=== PATIENT | female | born 1930 | race Caucasian/White ===

== ENCOUNTER 2016-12-06 12:38 | Inpatient (IN) | payer MEDICARE, BC ==
--- NOTE | ~2016-12-06 | CN ---
Consultation Report [address] [id number] [facility] [place]. [address] NAME: JADEN BARBER : [birth year] STATUS : ADM IN [facility]#: [id number] AGE: 86 ADM/REG DATE : 12/06/16 MR#: [id number] REPORT SERV DATE: 12/08/16 DICTATED BY: MAVERICK STERN DATE: 12/08/16 REPORT STATUS : Draft TRANSCRIBED BY: MODL DATE: 12/08/16 SURGICAL CONSULTATION DATE OF CONSULTATION: REASON FOR CONSULTATION: Cholelithiasis with chronic cholecystitis, on renal ultrasound. HISTORY OF PRESENT ILLNESS: This 86-year-old female who was admitted on 12/06/2016 after a fall. She was noted to have acute kidney injury with chronic stage 3 kidney disease. She was noted to have atrial fibrillation, on anticoagulation with rapid ventricular rate and minimally elevated troponins. She, during her evaluation, had a renal ultrasound that revealed a gallbladder with wall thickening and tiny stones and sludge. The common bile duct is 9 mm. There is no pericholecystic fluid. There is no evidence of right upper quadrant pain or epigastric pain on abdominal exam. The patient denies any abdominal pain. She was noted to have a significant leukocytosis which is improving. She has a history of dementia as well. PAST MEDICAL HISTORY: As above with a history of breast cancer. PAST SURGICAL HISTORY: Left hip surgery and skin cancers and pacemaker placement. MEDICATIONS: Please see hospital chart. ALLERGIES: IBUPROFEN. FAMILY HISTORY: Negative for cancer per the patient. REVIEW OF SYSTEMS: The patient has some weakness, chest pain, myalgias. She denies itching, jaundice, change in bowel or bladder habits, nausea and vomiting, bright red blood per rectum, or melena. PHYSICAL EXAMINATION: General: Cachectic female, in no apparent distress. NECK: Supple. No adenopathy. CARDIOVASCULAR: Irregular rhythm with controlled rate. RESPIRATORY: Clear to auscultation. ABDOMEN: Soft, cachectic. The patient has no tenderness or masses. BACK: No CVA tenderness. EXTREMITIES: No clubbing, cyanosis, edema, or jaundice. LABORATORY DATA: White blood cell count today is 11,700. Her creatinine has improved to 1.58. INR has increased to 2.2. ASSESSMENT: Consultation Report [address] [id number] [facility] [place]. [address] NAME: JADEN BARBER : [birth year] STATUS : ADM IN PAT#: [id number] AGE: 86 ADM/REG DATE : 12/06/16 MR#: [id number] REPORT SERV DATE: 12/08/16 DICTATED BY: MAVERICK STERN DATE: 12/08/16 REPORT STATUS : Draft TRANSCRIBED BY: JETHRO DATE: 12/08/16 1. Cholelithiasis with gallbladder wall thickening consistent with chronic cholecystitis, on renal ultrasound. 2. No clinical biliary symptoms. 3. Multiple medical problems as above. PLAN: I will order a HIDA scan at this time to evaluate for possible cystic duct obstruction. There is no clinical evidence for acute cholecystitis at this time based on physical exam and clinical history. We will continue to hold Coumadin in case HIDA scan shows nonvisualization of the gallbladder. MALLORIE/JETHRO Maverick Stern M.D. / [id number] CC: MD NOBLE Gallegos SUSAN R.
--- NOTE | ~2016-12-06 | HP ---
History And Physical [place] [address] [facility] [place]. [address] NAME: JADEN BARBER : [birth year] STATUS : ADM IN [facility]#: [id number] AGE: 86 ADM/REG DATE : 12/06/16 MR#: [id number] REPORT SERV DATE: 12/06/16 DICTATED BY: CORRINA FLORES DATE: 12/06/16 REPORT STATUS : Draft TRANSCRIBED BY: MODL DATE: 12/06/16 DATE OF ADMISSION: 12/06/2016 CHIEF COMPLAINT: Chest pain. HISTORY OF PRESENT ILLNESS: The patient is an 86-year-old female. She has a past medical history significant for: 1. Dementia. 2. Probable previous AFib by history. 3. Chronic kidney disease. 4. Prior history of breast cancer. She presents today for several episodes. History is mostly per the family as with the patient's dementia, her history is somewhat suspect. The family states this morning when she got up to eat, she was at the breakfast table, she seemed to stop eating. She did not pass out. She just became sluggish and less responsive. Asked her if she was going to finish breakfast, she said no. They asked her if there was any type of problem. She said at that time that she was having chest pain. It was left-sided, going into her shoulder and tingling in her arms. They asked her to go get dressed, and they would take her to the emergency department. They state that she had difficulty doing that, seemed to not understand exactly what to do. They then became concerned about stroke. They brought her to the emergency department and when getting out of the car, she said it was hard for her to do because she had fallen last evening. The family was not aware, able to confirm this. On evaluation here, she was noted to have a 17,000 white count without any specific etiology. Her urinalysis is pending. Family states that recently she was taken to her PCP and had a UTI, but there was a reluctance to treat her for some reason so, no antibiotics were given. The patient was noted to be ambulatory with mild assistance. She is again not a good historian. She is telling me that her chest pain is not present and she has also told me that the pain in her left leg is not present. So, again it is little hard to define. She is not slurring her speech. The family states that her mentation is essentially what they would expect baseline for her given her dementia. PAST MEDICAL HISTORY: As covered above. PAST SURGICAL HISTORY: Previous left hip surgery and skin cancers. CURRENT MEDICATIONS: Vitamin D 1000, Lasix 20, Lopressor 50 b.i.d., triamcinolone ointment, and Coumadin 2 mg. ALLERGIES: IBUPROFEN. FAMILY HISTORY: Unremarkable. SOCIAL HISTORY: Nondrinker, nonsmoker. REVIEW OF SYSTEMS: Again a little difficult given the patient's history. She is not currently complaining of History And Physical [address] [address] NAME: JADEN BARBER : [birth year] STATUS : ADM IN [facility]#: [id number] AGE: 86 ADM/REG DATE : 12/06/16 MR#: [id number] REPORT SERV DATE: 12/06/16 DICTATED BY: CORRINA FLORES DATE: 12/06/16 REPORT STATUS : Draft TRANSCRIBED BY: JETHRO DATE: 12/06/16 any specific symptoms. PHYSICAL EXAMINATION: VITAL SIGNS: On exam, BP initially 106/64, pulse 78, temperature 97.5, respirations 16, saturation 95%. GENERAL: She is awake. She follows commands. Appears in no acute distress. Speech is normal. HEENT: Normocephalic, atraumatic. Sclerae nonicteric. NECK: Supple. HEART: Regular rate and rhythm. LUNGS: Clear to auscultation. ABDOMEN: Nontender, nondistended. EXTREMITIES: No clubbing, cyanosis, or edema. Again she is noted to move all extremities and she was ambulatory with assistance. LABORATORY DATA: Sodium 140, potassium 4.4, chloride 100, CO2 of 28, BUN and creatinine , her baseline creatinine appears to be between 1.2 to 1.8, glucose 145. Troponins 0.02. White count of 17.2, H and H is 14.6 and 43.4, platelets are 200, INR is 1.8. Urinalysis is pending. X-rays, shoulder film was read as negative. A chest x-ray was read as COPD without infiltrate, old rib and compression fractures. Her pelvic films showed a greater trochanter avulsion age-indeterminate. Family is not certain if this is new or old. EKG was paced. ASSESSMENT: Episode this morning, uncertain as to the etiology. Leukocytosis, undetermined etiology. Confusion, resolved. Chest pain. PLAN: 1. The patient has been admitted. 2. We will do serial troponins. 3. We will await the results of her urine. We will check a procalcitonin. We will do orthostatics. 4. Further recommendations pending above. TLF/MODL Corrina Flores M.D. / [id number] CC: Antonieta Reyes
--- NOTE | ~2016-12-06 | DS ---
Discharge Summary [facility] [address] [place]. [address] NAME: JADEN BARBER : [birth year] STATUS : DIS IN PAT#: [id number] AGE: 86 ADM/REG DATE : 12/06/16 MR#: [id number] REPORT SERV DATE: 12/12/16 DICTATED BY: GUADALUPE GUTIÉRREZ DATE: 12/11/16 REPORT STATUS : Draft TRANSCRIBED BY: JETHRO DATE: 12/11/16 ADMISSION DATE: 12/06/2016 DISCHARGE DATE: 12/11/2016 CONSULTATION: 1. General Surgery, Dr. Maverick Gorman. 2. Cardiology, Dr. Olivarez. 3. Orthopedic Surgery, Dr. Aguilar. PROCEDURES: None. DISCHARGE DIAGNOSES: 1. Acute cholecystitis. 2. Left hip . 3. Atrial fibrillation with RVR. 4. Chronic kidney disease, stage III. 5. Acute kidney injury. 6. Recurrent falls. 7. Elevated troponin secondary to demand ischemia. 8. Frequent falls. 9. Chronic heart failure with EF of 45%. 10.History of sick sinus syndrome, status post pacemaker placement. 11.Recurrent falls due to unsteady gait. DISCHARGE CONDITION: Stable. HISTORY OF PRESENT ILLNESS: For detailed HPI, please make reference to Dr. Darrick Salas's dictation on 12/06/2016; this is an 86-year-old female with medical history of advanced dementia; chronic atrial fibrillation, on chronic anticoagulation with Coumadin; sick sinus syndrome, status post pacemaker placement; chronic kidney disease stage 3, who presented to the hospital with known specific complaints which includes chest pain, hip pain and unwitnessed fall at home. The patient's family member with concern because the patient was also noted to have suddenly stopped eating, reduced p.o. intake, and continued to feel fatigued. Hence, the patient was brought to the emergency room for further evaluation. In the emergency room, the patient was found to have a blood pressure of 106/64, pulse rate of 78, and temperature of 97.5. Physical examination consistent weight advanced dementia. The patient was only oriented x1. Rest of the physical examination was benign. LABORATORY DATA: Creatinine was 1.8. WBC 17.2, hemoglobin was 14.6, and hematocrit was 43.4, INR was 1.8. Given this new finding of leukocytosis and concern for possible chest pain, the patient was admitted to the Hospitalist Service for further evaluation. HOSPITAL COURSE: Acute cholecystitis. Given the patient's presentation of WBC of 17,000, although patient had no fever, she had vague complaints due to advanced dementia. An ultrasound of the kidney was obtained to evaluate for the etiology of acute kidney injury. It was noted on the ultrasound that the patient had evidence of acute cholecystitis with Discharge Summary [address] [address] NAME: JADEN BARBER : [birth year] STATUS : DIS IN PAT#: [id number] AGE: 86 ADM/REG DATE : 12/06/16 MR#: [id number] REPORT SERV DATE: 12/12/16 DICTATED BY: GUADALUPE GUTIÉRREZ DATE: 12/11/16 REPORT STATUS : Draft TRANSCRIBED BY: MODL DATE: 12/11/16 multiple stones in the gallbladder. The patient was started on IV antibiotics. WBC gradually trended down. The patient remained afebrile during the course of this admission. General Surgery was consulted, recommended an HIDA scan. The HIDA scan showed normal uptake of the radio tracer by the liver and excretion into the biliary tree, although there was some dilatation of the common bile duct. There was normal transit of radiotracer to the duodenum and small bowel without evidence of high-grade obstruction. Imaging was reviewed by general surgeon and recommended no surgical intervention. The patient was transitioned from IV antibiotics to p.o. antibiotics with good response. At the time of discharge, the patient's white blood cell has returned back to normal. The patient was advised to continue follow up with primary care physician and general surgery as needed as an outpatient at the outpatient clinic. Atrial fibrillation with rapid ventricular response. The patient's metoprolol was held on presentation to the hospital due to concern for possible hypotension and recurrent fall. The patient was noted to have gone into atrial fibrillation with RVR. She was placed on Cardizem drip. Cardiology was consulted. The patient was restarted back on metoprolol. The patient's blood pressure remained stable. The patient was subsequently weaned off Cardizem drip. The patient's heart rate returned back to baseline of 80s without any further episodes of RVR. During the course of this admission, the patient's Coumadin was transiently held due to workup for possible surgical intervention. However, the patient had no surgery during this admission. The patient was restarted back on Coumadin. The patient was advised to continue Coumadin. Follow up with Coumadin Clinic as an outpatient. Left hip . On presentation to the hospital, given reported history of unwitnessed fall, the patient had a skeletal survey which included a pelvic x-ray, and pelvic x-ray showed an age indeterminate avulsion of the left trochanter. The patient's primary orthopedic surgeon was consulted given the patient had a left hip replacement surgery several years ago. The patient's left hip prosthesis was noted to be intact on x- ray. General Surgery recommended conservative management to have limited weightbearing on the left leg. No surgical intervention recommended at this time. The patient was advised to continue follow up with primary care physician and orthopedic as an outpatient as needed. Advanced dementia. The patient was pleasant throughout the course of this admission. No behavioral disturbances noted at the time of discharge. The patient was discharged back home with 24 hours care under the supervision of her son. Elevated troponin. During the course of this admission, the patient's troponin trended up to 0.10, etiology likely due to demand ischemia for atrial fibrillation with RVR as well as renal insufficiency. The patient had no EKG changes, no chest pain per Cardiology. The patient to continue beta lety as well as Coumadin for atrial fibrillation and to follow up with Cardiology as an outpatient. No evidence of NSTEMI or myocardial infection noted during this admission. DISCHARGE MEDICATIONS: 1. Metoprolol 50 mg p.o. b.i.d. 2. Warfarin 2 mg p.o. daily. 3. Ceftin 250 mg p.o. daily for 4 days. Discharge Summary [address] [address] NAME: JADEN BARBER : [birth year] STATUS : DIS IN PAT#: [id number] AGE: 86 ADM/REG DATE : 12/06/16 MR#: [id number] REPORT SERV DATE: 12/12/16 DICTATED BY: GUADALUPE GUTIÉRREZ DATE: 12/11/16 REPORT STATUS : Draft TRANSCRIBED BY: MODCuca DATE: 12/11/16 4. Lasix 20 mg p.o. daily. 5. Vitamin D3, 2000 units p.o. every morning. DISCHARGE FOLLOWUP: 1. With primary care physician within two to three weeks of discharge. 2. With Cardiology within three to four weeks of discharge. 3. With Orthopedics as needed. 4. General Surgery as needed. DISCHARGE ACTIVITIES: Limited weightbearing on the left leg. Greater than 40 minutes was used to prepare this patient's discharge, reconcile medication, and advise the patient on discharge plans and followup. IOO/JETHRO Guadalupe Gutiérrez MD / [id number] CC: MD Antonieta Gallegos M.D. Daniel Heithold, M.D. W. Timothy Ballard, M.D. Travis Lee Flock, M.D.
--- NOTE | ~2016-12-06 | CN ---
Consultation Report [facility] [address] [place]. [address] NAME: JADEN BARBER : [birth year] STATUS : ADM IN [facility]#: [id number] AGE: 86 ADM/REG DATE : 12/06/16 MR#: [id number] REPORT SERV DATE: 12/09/16 DICTATED BY: JONATHAN BENTON DATE: 12/09/16 REPORT STATUS : Draft TRANSCRIBED BY: MODL DATE: 12/09/16 CARDIOVASCULAR CONSULTATION DATE OF CONSULTATION: 12/09/2016 CHIEF COMPLAINT: Atrial fibrillation with rapid ventricular rate and elevated troponin. HISTORY OF PRESENT ILLNESS: The patient is an 86-year-old woman with a history of fairly advanced dementia; sick sinus syndrome, status post pacemaker; and chronic atrial fibrillation. She has a number of other chronic medical problems outlined below. She is admitted with nonspecific symptoms to the emergency room. Her white count was found to be elevated. She did not have a urinary tract infection. There has been some concern about possible gallbladder disease. Her troponin elevated mildly to 0.08. Her metoprolol 50 mg twice a day was held on admission and now her heart rate is elevated, in atrial fibrillation. PAST MEDICAL HISTORY: 1. Sick sinus syndrome, status post pacemaker, 01/2016. 2. Chronic atrial fibrillation with a strategy of rate control and anticoagulation. 3. Nonsustained ventricular tachycardia with EF 45% on recent check. 4. Hypertension. 5. Chronic kidney disease. 6. Frequent mechanical falls. 7. [id number] INR on Coumadin. SOCIAL HISTORY: She does not smoke or drink alcohol. FAMILY HISTORY: There is no family history of early coronary artery disease. ALLERGIES: IBUPROFEN. MEDICATIONS AT HOME: Include vitamin D, Lasix 20 mg daily, metoprolol 50 mg twice a day, eye drops, and Coumadin 2 mg daily. REVIEW OF SYSTEMS: A complete review of systems was obtained, which is negative in detail, except as mentioned above in the HPI. PHYSICAL EXAMINATION: BLOOD PRESSURE: 110/62. PULSE: 87 and irregular. RESPIRATIONS: 14. GENERAL: Comfortable, in no acute distress. HEENT: Anicteric. No xanthelasma. Lips without cyanosis. NECK: No JVD. Carotids 2+ and symmetric. No carotid bruits. LUNGS: CTA bilaterally. No wheezes or rhonchi. No accessory muscle use. Consultation Report [facility] [address] [place]. [address] NAME: JADEN BARBER : [birth year] STATUS : ADM IN PAT#: [id number] AGE: 86 ADM/REG DATE : 12/06/16 MR#: [id number] REPORT SERV DATE: 12/09/16 DICTATED BY: JONATHAN BENTON DATE: 12/09/16 REPORT STATUS : Draft TRANSCRIBED BY: JETHRO DATE: 12/09/16 COR: Irregularly irregular. Normal S1 and S2. ABD: Soft, nontender, nondistended. Normal bowel sounds. No abdominal bruits. EXT: No clubbing, cyanosis, or edema. 2+ and symmetric distal pulses. SKIN: Warm and dry. No venous stasis changes. MS: No kyphosis. NEURO/PSYCH: Oriented x3. No anxiety or depression. LABORATORY STUDIES: Potassium of 4.2, creatinine of 1.28. White count of 8.6, hematocrit of 39. INR of 2.2. EKG: A 12-lead EKG on 12/07/2016 shows atrial fibrillation, rate of 133 beats per minute. Nonspecific T-wave abnormalities noted. IMPRESSION: Ms. Barber is an 86-year-old woman with multiple medical problems. From a cardiac standpoint, she has a history of sick sinus syndrome, status post pacemaker; chronic atrial fibrillation, on rate control and anticoagulation; nonsustained ventricular tachycardia and EF of 45%. I think her mildly elevated troponin is consistent with demand ischemia. This is not consistent with a non-ST elevation SC or acute SC. I think her poor rate control is secondary to holding metoprolol on admission. We will start the metoprolol 50 mg twice a day for rate control. She may need surgical intervention, but I would suggest a conservative strategy with avoidance of surgery if possible given her advanced age, dementia, and multiple medical problems. WW/JETHRO Jonathan Benton M.D. / [id number] CC: MD Amy Gallegos Susan R.
[~2016-12-06 12:38] MED LIST: ATV1 PO; JANTOVEN1 MG PO; L20 PO; LOP25 PO; RECLAST IV; ULTRAM50 PO; VISINE0.05 % OPH; VITAMIN B IM; ZESTRIL10 MG PO
[2016-12-06 13:07] LABS: BASOPHILS 0.1 %; BASOPHILS ABSOLUTE 0.01 10/3/uL (0.0-0.16); EOSINOPHILS 0.1 %; EOSINOPHILS ABSOLUTE 0.01 10/3/uL (0.0-0.53); HEMATOCRIT 43.4 % (36.0-48.0); HEMOGLOBIN 14.6 g/dL (12.0-16.0); IMMATURE GRANULOCYTES 0.8 %; IMMATURE GRANULOCYTES ABSOLUTE 0.13 10/3/uL (0.0-0.11); LYMPHOCYTES 4.2 %; LYMPHOCYTES ABSOLUTE 0.73 10/3/uL (0.67-4.30); MEAN CORPUS HGB CONC 33.6 g/dL (32.0-36.0); MEAN CORPUSCULAR HEMOGLOB 32.8 pg (26.0-34.0); MEAN CORPUSCULAR VOLUME 97.5 fL (80-100); MEAN PLATELET VOLUME 9.9 fL (9.2-13.0); MONOCYTES 3.6 %; MONOCYTES ABSOLUTE 0.62 10/3/uL (0.21-1.20); NEUTROPHILS 91.2 %; NEUTROPHILS ABSOLUTE 15.72 10/3/uL (2.02-8.40); PLATELET COUNT 200 10/3/uL (150-400); RBC DISTRIBUTION WIDTH 13.9 % (12.0-16.0); RED CELL COUNT 4.45 10/6/uL (4.0-5.6); WHITE BLOOD CELLS 17.2 10/3/uL (4.5-10.5)
[2016-12-06 13:08] LABS: MANUAL DIFF NO %
[2016-12-06 13:14] LABS: INTERNATIONAL NORMAL RATI 1.8 UNITS (-); PARTIAL THROMBO TIME 28.5 SEC (22.5-37.2)
[2016-12-06 13:16] LABS: PROTIME (NOT ORD) 20.3 SEC (12.0-14.5)
[2016-12-06 13:23] LABS: CALCIUM, SERUM 9.6 MG/DL (8.5-10.4); CHEST PAIN PROFILE TAT 0 Hrs 20 Mins; CHLORIDE, SERUM 100 MMOL/L (96-112); CO2 (CARBON DIOXIDE) 28 MMOL/L (24-34); CREATININE 1.83 MG/DL (0.55-1.02); GFR AFRICAN AMERICAN 28 ML/MIN (>=60); GFR NON AFRICAN AMERICAN 24 ML/MIN (>=60); POTASSIUM, SERUM 4.4 MMOL/L (3.5-5.3); SODIUM, SERUM 140 MMOL/L (135-148); TROPONIN I 0.02 NG/ML (<0.05)
[2016-12-06 13:26] LABS: BUN (BLOOD UREA NITROGEN) 40 MG/DL (6-23); GLUCOSE, SERUM 145 MG/DL (60-99)
[2016-12-06] MEDS ORDERED: LOP50 PO (16:34)
[2016-12-06] MEDS ORDERED: JANTOVEN2 MG PO (16:35)
[2016-12-06] MEDS ORDERED: VITAMIN D31000 UNIT PO (16:36)
[2016-12-06] MEDS ORDERED: TRIAMCINOLONE O80 GM TOP (16:40)
[2016-12-06] MEDS ORDERED: L20 PO (16:42)
[2016-12-06 18:33] LABS: ASCORBIC ACID (UR NOT ORDER) NEG (NEG); BILIRUBIN, URINE NEGATIVE (NEG); ER URINALYSIS TAT 0 Hrs 10 Mins; KETONE, URINE NEGATIVE (NEG); LEUKOCYTE ESTERASE(NOT OR NEG (NEG); NITRITE (URINE) NEG (NEG); WBC (NOT ORDERED) (RFLEX) < 1 (0-5)
[2016-12-06 19:46] LABS: PROCALCITONIN 0.07 ng/mL (<0.5)
[2016-12-06 21:30] LABS: BASOPHILS 0.1 %; BASOPHILS ABSOLUTE 0.01 10/3/uL (0.0-0.16); EOSINOPHILS 0 %; HEMATOCRIT 39.9 % (36.0-48.0); HEMOGLOBIN 13.7 g/dL (12.0-16.0); IMMATURE GRANULOCYTES 0.4 %; IMMATURE GRANULOCYTES ABSOLUTE 0.05 10/3/uL (0.0-0.11); LYMPHOCYTES 7.8 %; LYMPHOCYTES ABSOLUTE 0.95 10/3/uL (0.67-4.30); MEAN CORPUS HGB CONC 34.3 g/dL (32.0-36.0); MEAN CORPUSCULAR HEMOGLOB 33.1 pg (26.0-34.0); MEAN CORPUSCULAR VOLUME 96.4 fL (80-100); MEAN PLATELET VOLUME 9.8 fL (9.2-13.0); MONOCYTES 5.7 %; NEUTROPHILS ABSOLUTE 10.54 10/3/uL (2.02-8.40); PLATELET COUNT 166 10/3/uL (150-400); RBC DISTRIBUTION WIDTH 13.8 % (12.0-16.0); RED CELL COUNT 4.14 10/6/uL (4.0-5.6); WHITE BLOOD CELLS 12.3 10/3/uL (4.5-10.5)
[2016-12-06 21:53] LABS: MANUAL DIFF NO %
[2016-12-07 03:47] LABS: BUN (BLOOD UREA NITROGEN) 40 MG/DL (6-23); CALCIUM, SERUM 9.3 MG/DL (8.5-10.4); CHLORIDE, SERUM 102 MMOL/L (96-112); CO2 (CARBON DIOXIDE) 31 MMOL/L (24-34); CREATININE 1.79 MG/DL (0.55-1.02); GFR AFRICAN AMERICAN 29 ML/MIN (>=60); GFR NON AFRICAN AMERICAN 25 ML/MIN (>=60); GLUCOSE, SERUM 118 MG/DL (60-99); POTASSIUM, SERUM 4.3 MMOL/L (3.5-5.3); SODIUM, SERUM 140 MMOL/L (135-148); TROPONIN I 0.04 NG/ML (<0.05)
[2016-12-07 04:57] LABS: INTERNATIONAL NORMAL RATI 1.8 UNITS (-); PROTIME (NOT ORD) 20.4 SEC (12.0-14.5)
[2016-12-08 06:39] LABS: BASOPHILS 0.1 %; BASOPHILS ABSOLUTE 0.01 10/3/uL (0.0-0.16); EOSINOPHILS 0.1 %; EOSINOPHILS ABSOLUTE 0.01 10/3/uL (0.0-0.53); HEMATOCRIT 40.5 % (36.0-48.0); HEMOGLOBIN 13.4 g/dL (12.0-16.0); IMMATURE GRANULOCYTES 0.3 %; IMMATURE GRANULOCYTES ABSOLUTE 0.04 10/3/uL (0.0-0.11); LYMPHOCYTES 5.9 %; LYMPHOCYTES ABSOLUTE 0.69 10/3/uL (0.67-4.30); MEAN CORPUS HGB CONC 33.1 g/dL (32.0-36.0); MEAN CORPUSCULAR HEMOGLOB 32.5 pg (26.0-34.0); MEAN CORPUSCULAR VOLUME 98.3 fL (80-100); MEAN PLATELET VOLUME 10.2 fL (9.2-13.0); MONOCYTES 5.7 %; MONOCYTES ABSOLUTE 0.66 10/3/uL (0.21-1.20); NEUTROPHILS 87.9 %; NEUTROPHILS ABSOLUTE 10.27 10/3/uL (2.02-8.40); PLATELET COUNT 165 10/3/uL (150-400); RBC DISTRIBUTION WIDTH 13.7 % (12.0-16.0); RED CELL COUNT 4.12 10/6/uL (4.0-5.6); WHITE BLOOD CELLS 11.7 10/3/uL (4.5-10.5)
[2016-12-08 06:42] LABS: INTERNATIONAL NORMAL RATI 2.2 UNITS (-)
[2016-12-08 06:48] LABS: MANUAL DIFF NO %; PROTIME (NOT ORD) 23.8 SEC (12.0-14.5)
[2016-12-08 06:49] LABS: ALBUMIN 3.3 G/DL (3.5-5.0); BUN (BLOOD UREA NITROGEN) 38 MG/DL (6-23); CALCIUM, SERUM 9.4 MG/DL (8.5-10.4); CHLORIDE, SERUM 103 MMOL/L (96-112); CO2 (CARBON DIOXIDE) 27 MMOL/L (24-34); CREATININE 1.56 MG/DL (0.55-1.02); GFR AFRICAN AMERICAN 34 ML/MIN (>=60); GFR NON AFRICAN AMERICAN 29 ML/MIN (>=60); PHOSPHORUS, SERUM 3.3 MG/DL (2.5-4.5); POTASSIUM, SERUM 4.3 MMOL/L (3.5-5.3); SODIUM, SERUM 142 MMOL/L (135-148)
[2016-12-08 06:53] LABS: GLUCOSE, SERUM 158 MG/DL (60-99); TROPONIN I 0.08 NG/ML (<0.05)
[2016-12-09 04:51] LABS: BASOPHILS 0.1 %; BASOPHILS ABSOLUTE 0.01 10/3/uL (0.0-0.16); EOSINOPHILS 1.2 %; IMMATURE GRANULOCYTES 0.5 %; IMMATURE GRANULOCYTES ABSOLUTE 0.04 10/3/uL (0.0-0.11); LYMPHOCYTES 15.3 %; LYMPHOCYTES ABSOLUTE 1.31 10/3/uL (0.67-4.30); MEAN CORPUS HGB CONC 33.3 g/dL (32.0-36.0); MEAN CORPUSCULAR HEMOGLOB 33.2 pg (26.0-34.0); MEAN CORPUSCULAR VOLUME 99.5 fL (80-100); MEAN PLATELET VOLUME 10.2 fL (9.2-13.0); MONOCYTES ABSOLUTE 0.86 10/3/uL (0.21-1.20); NEUTROPHILS 72.9 %; NEUTROPHILS ABSOLUTE 6.25 10/3/uL (2.02-8.40); PLATELET COUNT 145 10/3/uL (150-400); RBC DISTRIBUTION WIDTH 13.9 % (12.0-16.0); RED CELL COUNT 3.92 10/6/uL (4.0-5.6); WHITE BLOOD CELLS 8.6 10/3/uL (4.5-10.5)
[2016-12-09 04:53] LABS: MANUAL DIFF NO %
[2016-12-09 04:56] LABS: INTERNATIONAL NORMAL RATI 2.2 UNITS (-); PROTIME (NOT ORD) 24.4 SEC (12.0-14.5)
[2016-12-09 05:10] LABS: ALBUMIN 2.8 G/DL (3.5-5.0); ALKALINE PHOSPHATASE 60 U/L (45-117); CALCIUM, SERUM 8.7 MG/DL (8.5-10.4); CHLORIDE, SERUM 104 MMOL/L (96-112); CO2 (CARBON DIOXIDE) 28 MMOL/L (24-34); CREATININE 1.28 MG/DL (0.55-1.02); DIRECT BILIRUBIN 0.2 MG/DL (0.0-0.4); GFR AFRICAN AMERICAN 43 ML/MIN (>=60); GFR NON AFRICAN AMERICAN 37 ML/MIN (>=60); POTASSIUM, SERUM 4.2 MMOL/L (3.5-5.3); SGOT(AST) 18 U/L (5-40); SGPT(ALT) 12 U/L (5-65); SODIUM, SERUM 142 MMOL/L (135-148); TOTAL PROTEIN 6.9 G/DL (6.0-8.5)
[2016-12-09 05:14] LABS: A/G RATIO 0.7 (0.7-1.9); BUN (BLOOD UREA NITROGEN) 30 MG/DL (6-23); GLOBULIN 4.1 G/DL (2.5-4.1); GLUCOSE, SERUM 111 MG/DL (60-99); TOTAL BILIRUBIN 1.2 MG/DL (0-1.2)
[2016-12-10 04:05] LABS: BASOPHILS 0.1 %; BASOPHILS ABSOLUTE 0.01 10/3/uL (0.0-0.16); EOSINOPHILS 1.4 %; EOSINOPHILS ABSOLUTE 0.13 10/3/uL (0.0-0.53); HEMATOCRIT 38.9 % (36.0-48.0); HEMOGLOBIN 12.9 g/dL (12.0-16.0); IMMATURE GRANULOCYTES 0.4 %; IMMATURE GRANULOCYTES ABSOLUTE 0.04 10/3/uL (0.0-0.11); LYMPHOCYTES 19.8 %; MEAN CORPUS HGB CONC 33.2 g/dL (32.0-36.0); MEAN CORPUSCULAR HEMOGLOB 33.1 pg (26.0-34.0); MEAN CORPUSCULAR VOLUME 99.7 fL (80-100); MEAN PLATELET VOLUME 9.9 fL (9.2-13.0); MONOCYTES 7.9 %; MONOCYTES ABSOLUTE 0.72 10/3/uL (0.21-1.20); NEUTROPHILS 70.4 %; NEUTROPHILS ABSOLUTE 6.38 10/3/uL (2.02-8.40); PLATELET COUNT 160 10/3/uL (150-400); WHITE BLOOD CELLS 9.1 10/3/uL (4.5-10.5)
[2016-12-10 04:07] LABS: MANUAL DIFF NO %
[2016-12-10 04:10] LABS: INTERNATIONAL NORMAL RATI 1.7 UNITS (-)
[2016-12-10 04:12] LABS: PROTIME (NOT ORD) 19.7 SEC (12.0-14.5)
[2016-12-10 04:17] LABS: ALBUMIN 2.8 G/DL (3.5-5.0); BUN (BLOOD UREA NITROGEN) 33 MG/DL (6-23); CALCIUM, SERUM 8.8 MG/DL (8.5-10.4); CHLORIDE, SERUM 106 MMOL/L (96-112); CO2 (CARBON DIOXIDE) 27 MMOL/L (24-34); CREATININE 1.32 MG/DL (0.55-1.02); GFR AFRICAN AMERICAN 42 ML/MIN (>=60); GFR NON AFRICAN AMERICAN 36 ML/MIN (>=60); GLUCOSE, SERUM 115 MG/DL (60-99); PHOSPHORUS, SERUM 2.8 MG/DL (2.5-4.5); POTASSIUM, SERUM 4.4 MMOL/L (3.5-5.3); SODIUM, SERUM 141 MMOL/L (135-148)
[2016-12-11 05:04] LABS: BASOPHILS 0.1 %; BASOPHILS ABSOLUTE 0.01 10/3/uL (0.0-0.16); EOSINOPHILS 2.2 %; EOSINOPHILS ABSOLUTE 0.16 10/3/uL (0.0-0.53); HEMOGLOBIN 12.8 g/dL (12.0-16.0); IMMATURE GRANULOCYTES 0.3 %; IMMATURE GRANULOCYTES ABSOLUTE 0.02 10/3/uL (0.0-0.11); LYMPHOCYTES 17.8 %; LYMPHOCYTES ABSOLUTE 1.32 10/3/uL (0.67-4.30); MEAN CORPUS HGB CONC 32.8 g/dL (32.0-36.0); MEAN CORPUSCULAR HEMOGLOB 32.6 pg (26.0-34.0); MEAN CORPUSCULAR VOLUME 99.2 fL (80-100); MEAN PLATELET VOLUME 9.9 fL (9.2-13.0); MONOCYTES 6.9 %; MONOCYTES ABSOLUTE 0.51 10/3/uL (0.21-1.20); NEUTROPHILS 72.7 %; NEUTROPHILS ABSOLUTE 5.39 10/3/uL (2.02-8.40); PLATELET COUNT 174 10/3/uL (150-400); RBC DISTRIBUTION WIDTH 13.5 % (12.0-16.0); RED CELL COUNT 3.93 10/6/uL (4.0-5.6); WHITE BLOOD CELLS 7.4 10/3/uL (4.5-10.5)
[2016-12-11 05:13] LABS: MANUAL DIFF NO %
[2016-12-11 05:22] LABS: ALBUMIN 2.7 G/DL (3.5-5.0); BUN (BLOOD UREA NITROGEN) 34 MG/DL (6-23); CHLORIDE, SERUM 103 MMOL/L (96-112); CO2 (CARBON DIOXIDE) 27 MMOL/L (24-34); CREATININE 1.24 MG/DL (0.55-1.02); GFR AFRICAN AMERICAN 45 ML/MIN (>=60); GFR NON AFRICAN AMERICAN 39 ML/MIN (>=60); GLUCOSE, SERUM 102 MG/DL (60-99); PHOSPHORUS, SERUM 2.6 MG/DL (2.5-4.5); POTASSIUM, SERUM 4.4 MMOL/L (3.5-5.3); SODIUM, SERUM 140 MMOL/L (135-148)
[2016-12-11 05:36] LABS: INTERNATIONAL NORMAL RATI 1.5 UNITS (-); PROTIME (NOT ORD) 17.8 SEC (12.0-14.5)
[2016-12-11] MEDS ORDERED: CEFT2 PO (11:46)
== END 2016-12-11 13:56 | disposition home health service (06) | DRG 445 ==
LOC: ER 12:38 → 5NO 19:11
PROVIDERS: Emergency Medicine; Hospitalist; Internal Medicine; Nurse Practitioner Family
DX: K80.12 Calculus of gallbladder with acute and chronic cholecystitis without obstruction (principal); N17.9 Acute kidney failure, unspecified; I24.8 Other forms of acute ischemic heart disease; I49.5 Sick sinus syndrome; F03.90 Unspecified dementia, unspecified severity, without behavioral disturbance, psychotic disturbance, mood disturbance, and anxiety; R07.9 Chest pain, unspecified; D72.829 Elevated white blood cell count, unspecified; Z85.3 Personal history of malignant neoplasm of breast; N18.9 Chronic kidney disease, unspecified; R41.0 Disorientation, unspecified; N18.3 Chronic kidney disease, stage 3 (moderate); Z95.0 Presence of cardiac pacemaker; Z91.81 History of falling; I48.2 Chronic atrial fibrillation; Z79.01 Long term (current) use of anticoagulants
CPT/HCPCS: 70450; 71020; 72170; 73030-LT; 76775; 78226; 80048; 80053; 80069; 80076; 81001; 83735; 83880; 84145; 84484; 85025; 85610; 85730; 87040; 93005; 96374; 97161-GP; 99285; A9270-GY; A9537; G8978-CK-GP; G8979-CI-GP